=== PATIENT | male | born 1960 | race Caucasian/White ===

== ENCOUNTER 2018-05-18 10:57 | Inpatient (IN) | payer OTHER, MEDICARE ==
[~2018-05-18] VITALS: Ht 182.9 cm; Wt 108.4 kg
[2018-05-18 11:18] VITALS: BP 160/102
--- NOTE | 2018-05-18 11:19 | NUR ---
ARRIVAL PATIENT ARRIVED TO ED8 AMBULATORY WITH FAMILY, PATIENT AND FAMILY STATES PATIENT WAS HAVING SOME HALLUCINATIONS ON MYRNA KYLE, HE WAS TALKING TO HIS LOTTERY TICKET AND OFF BALANCE, DOES HAVE A HISTORY OF BIPOLAR AND DEPRESSION. BROUGHT TO THE ED FOR ADMISSION TO THE BEHAVIORAL HEALTH UNIT FOR MEDICATION EVAL.
--- NOTE | 2018-05-18 11:23 | ER.PDOC ---
General Chief Complaint: Requesting Medical Care Stated Complaint: MEDICAL CLEARANCE/ DEPRESSION/ HALUCINATIONS Time seen by MD: 11:11 Source: patient, family, RN/MD History of Present Illness Timing/Duration: week Severity: moderate Associated Symptoms: Depressed, Hallucinating Prior symptoms/Treatment: Similar symptoms previous Allergies: Coded Allergies: No Known Allergies (Unverified , 05/18/18) Home Meds Reported Medications Clonazepam (KLONOPIN) 1 Mg Tablet, 1.5 MG PO BID, TABLET 05/18/18 Testosterone Cypionate (TESTOSTERONE CYPIONATE) 200 Mg/1 Ml Vial, 200 MG IM EVERY 2 WEEKS, VIAL 05/18/18 Cyclobenzaprine Hcl (FLEXERIL) 10 Mg Tablet, 1 TAB PO BID, #30 TAB 05/18/18 Amlodipine Besylate (NORVASC) 2.5 Mg Tablet, 1 TAB PO BID, #90 TAB 3 Refills 05/18/18 Aspirin (ASPIR 81) 81 Mg Tablet.dr, 1 TAB PO DAILY, #90 TAB 3 Refills 05/18/18 Fenofibrate Nanocrystallized (TRICOR) 145 Mg Tablet, 1 TAB PO DAILY, #90 TAB 3 Refills 05/18/18 Levothyroxine Sodium (SYNTHROID) 200 Mcg Tablet, 1 TAB PO DAILY, #90 TAB 3 Refills 05/18/18 Tamsulosin Hcl (FLOMAX) 0.4 Mg Cap.er.24h, 1 CAP PO DAILY, #90 CAP 3 Refills 05/18/18 Lovastatin (LOVASTATIN) 20 Mg Tablet, 1 TAB PO DAILY, #90 TAB 3 Refills 05/18/18 Hydrochlorothiazide (HYDROCHLOROTHIAZIDE) 12.5 Mg Capsule, 1 CAP PO DAILY, #90 CAP 3 Refills 05/18/18 Gabapentin (GABAPENTIN) 400 Mg Capsule, 1 CAP PO BID, #90 CAP 05/18/18 Duloxetine Hcl (CYMBALTA) 60 Mg Capsule.dr, 1 CAP PO BID, #30 CAP 2 Refills 05/18/18 Oxcarbazepine (TRILEPTAL) 600 Mg Tablet, 1 TAB PO BID, #60 TAB 05/18/18 Bupropion Hcl (BUPROPION XL) 300 Mg Tab.er.24h, 1 TAB PO DAILY, #30 TAB 05/18/18 Past Medical History Medical History: other (BIPOLAR) Family History Significant Family History: no pertinent family hx Social History Smoking: non-smoker Alcohol Use: sober Drug Use: none Reviewed Nursing Reviewed: Vital Signs, Abn. Noted Review of Systems All Other Systems: Reviewed and Negative Physical Exam General Appearance: No acute distress, Alert EENT: No nystagmus, PERRLA, EOM's intact, NML ENT inspection, Pharynx nml, NML gag reflex Neck: Non-Tender, Full Range of Motion, Supple, Normal Inspection Respiratory: chest non-tender Cardiovascular: Normal Peripheral Pulses, Regular Rate, Rhythm, No Edema, No Gallop, No JVD, No Murmur Gastrointestinal: Normal Bowel Sounds, No Organomegaly, No Pulsatile Mass, Non Tender, Soft Appearance/Memory/Insight: Appropriate Appearance, Appropriate Insight, Neat, No Memory Impairment Behavior/Eye Contact/Speech: Cooperative, Good Eye Contact, Normal Speech Thoughts/Hallucinations: Auditory Hallucinations Skin: Normal Color, Warm/Dry Results/Orders Results/Orders Laboratory Tests Test 05/18/18 11:20 White Blood Count 9.4 10^3/uL (4.5-11.0) Red Blood Count 5.52 10^6/uL (4.50-5.90) Hemoglobin 17.1 g/dL (13.9-16.3) Hematocrit 52.0 % (37.0-53.0) Mean Corpuscular Volume 94.2 fL (78-100) Mean Corpuscular Hemoglobin 31.0 pg (26-34) Mean Corpuscular Hemoglobin Concent 32.9 g/dL (33-37) Red Cell Distribution Width 13.4 % (11.5-14.5) Platelet Count 304 10^3/uL (150-400) Mean Platelet Volume 9.4 fL (7.8-11.0) Neutrophils (%) (Auto) 75.7 % (41.0-85.0) Lymphocytes (%) (Auto) 12.5 % (24.0-44.0) Monocytes (%) (Auto) 8.3 % (5.0-12.0) Neutrophils # (Auto) 7.1 10^3/uL (1.8-7.7) Lymphocytes # (Auto) 1.2 10^3/uL (1.0-4.8) Monocytes # (Auto) 0.8 10^3/uL (0.3-0.8) Absolute Immature Granulocyte (auto 0.03 10^3 u/L (0-2) Eosinophils % 2.8 % (0.0-5.0) Basophils % 0.4 % (0.0-0.2) Basophils # 0.0 10^3/uL (0.0-0.1) Eosinophil Count 0.3 10^3/uL (0.0-0.2) Prothrombin Time 9.9 SEC (9.8-11.9) Prothrombin Time INR (Non-Therap) 1.0 Activated Partial Thromboplast Time 26.3 SEC (24.67-30.72) Urine Collection Type UNKNOWN Urine Color YELLOW (YELLOW) Urine Appearance CLEAR (CLEAR) Urine Bilirubin NEGATIVE MG/DL (NEGATIVE) Urine Ketones NEGATIVE (NEGATIVE) Urine Specific Kerrick 1.005 (1.005-1.035) Urine pH 7 (5.0-6.0) Urine Protein NEGATIVE (NEGATIVE) Urine Urobilinogen NORMAL (NEGATIVE) Urine Nitrate NEGATIVE (NEGATAIVE) Urine Leukocyte Esterase NEGATIVE (NEGATIVE) Urine Blood NEGATIVE (NEGATIVE) Urine Glucose NORMAL (NEGATIVE) Sodium Level 137 mmol/L (132-145) Potassium Level 4.2 mmol/L (3.6-5.2) Chloride Level 104.0 mmol/L (96-109) Carbon Dioxide Level 23.8 mmol/L (20.0-32) Anion Gap 13.4 Blood Urea Nitrogen 7 mg/dL (7-18) Creatinine 0.90 mg/dL (0.59-1.40) Estimated GFR () 105.6 (>/=60) BUN/Creatinine Ratio 7.0 Glucose Level 140 mg/dL (70-110) Calcium Level 9.3 mg/dL (8.4-10.5) Total Bilirubin 0.3 mg/dL (0.2-1.0) Aspartate Amino Transf (AST/SGOT) 19 U/L (0-35) Alanine Aminotransferase (ALT/SGPT) 32 U/L (12-78) Alkaline Phosphatase 65 U/L (50-136) Total Creatine Kinase 355 U/L (39-308) Troponin I < 0.02 ng/mL (0.00-0.05) Pro-B-Type Natriuretic Peptide 22 pg/mL (0-125) Total Protein 7.2 g/dL (6.4-8.2) Albumin 4.1 g/dL (3.4-5.0) Globulin 3.1 Vitamin B12 Level 594 pg/mL (193-986) Thyroid Stimulating Hormone (TSH) 2.228 mIU/mL (0.358-3.740) Urine Opiates, Qualitative NEGATIVE ng/mL (CUT-OFF:300) Urine Methadone, Qualitative NEGATIVE ng/mL (CUT-OFF:300) Urine Amphetamine Qualitative NEGATIVE ng/mL (CUTOFF:1000) Urine Barbiturates, Qualitative NEGATIVE ng/mL (CUT-OFF:200) Urine Phencyclidine Screen NEGATIVE ng/mL (CUT-OFF:25) Urine MDMA (Ecstasy), Qualitative POSITIVE ng/mL (CUT-OFF:300) Urine Benzodiazepines Screen NEGATIVE ng/mL (CUT-OFF:200) Urine Cocaine Qualitative NEGATIVE ng/mL (CUT-OFF:300) Ur Tetrahydrocannabinol (THC) Scrn POSITIVE ng/mL (CUT-OFF:50) Percent Immature Gran (Cell Imm) 0.30 % (0.00-0.50) Consult/PCP Time Consult/PCP Called: 13:00 Consult/PCP: DR FAM Departure Time of Disposition: 12:22 Disposition: 65 XFER TO PSYCH HOSP/UNIT Impression: Primary Impression: Psychosis Condition: Stable Comments MEDICALLY CLEAR FOR GP Duration or Time Spent with Pa: 2 HRS FIORDALIZA BERGER MD May 18, 2018 11:23
[2018-05-18] MEDS ORDERED: TAMS-14 PO (11:26)
[2018-05-18] MEDS ORDERED: AMLO2.5T2 PO (11:26)
[2018-05-18] MEDS ORDERED: HYDR12.53 PO (11:26)
[2018-05-18] MEDS ORDERED: LOVA20TA2 PO (11:26)
[2018-05-18] MEDS ORDERED: DULO60CA7 PO (11:26)
[2018-05-18] MEDS ORDERED: FENO145T PO (11:26)
[2018-05-18] MEDS ORDERED: CLON1TAB PO (11:26)
[2018-05-18] MEDS ORDERED: [UNRECOGNIZED DRUG - CODE] PO (11:26)
[2018-05-18] MEDS ORDERED: GABA400C10 PO (11:26)
[2018-05-18] MEDS ORDERED: LEVO200T PO (11:26)
[2018-05-18] MEDS ORDERED: OXCA600T3 PO (11:26)
[2018-05-18] MEDS ORDERED: TEST200V3 IM (11:26)
[2018-05-18] MEDS ORDERED: ASPI-484 PO (11:26)
[2018-05-18] MEDS ORDERED: CYCL10TA2 PO (11:26)
--- NOTE | 2018-05-18 11:30 | DIREP ---
PROCEDURE:CHEST 1 VIEW COMPARISON:[facility], CR, XRAY CHEST 2 VWS, 04/20/2018, 08:30 AM. INDICATIONS:MEDICAL CLEARANCE FINDINGS: LUNGS/PLEURA:No significant pulmonary parenchymal abnormalities. No effusions. VASCULATURE:Normal. Unremarkable pulmonary vasculature. CARDIAC:Normal. No cardiac silhouette abnormality or cardiomegaly. MEDIASTINUM:Normal. No visible mass or adenopathy. BONES:Mild scoliosis with mild degenerative disc disease and spondylosis. OTHER:Negative. CONCLUSION:No acute cardiopulmonary disease. No change. Dictated by: Gwyn Viera M.D. on 05/18/2018 at 11:28 AM
[2018-05-18 11:31] LABS: BASOPHIL % 0.4 % (0.0-0.2); EOSINOPHIL # 0.3 10^3/uL (0.0-0.2); EOSINOPHIL % 2.8 % (0.0-5.0); HEMOGLOBIN 17.1 g/dL (13.9-16.3); LYMPHOCYTES # 1.2 10^3/uL (1.0-4.8); LYMPHOCYTES % 12.5 % (24.0-44.0); MEAN CELL HGB CONCENTRATION 32.9 g/dL (33-37); MEAN CORP VOLUME 94.2 fL (78-100); MEAN PLATELET VOLUME 9.4 fL (7.8-11.0); MONOCYTES # 0.8 10^3/uL (0.3-0.8); MONOCYTES % 8.3 % (5.0-12.0); NEUTROPHIL # 7.1 10^3/uL (1.8-7.7); NEUTROPHILS % 75.7 % (41.0-85.0); RED CELL DISTRIBUTION WIDTH 13.4 % (11.5-14.5); WHITE BLOOD CELL 9.4 10^3/uL (4.5-11.0)
[2018-05-18 11:36] LABS: BILIRUBIN,URINE NEGATIVE (NEGATIVE); UROBILINOGEN,URINE NORMAL (NEGATIVE)
[2018-05-18 11:42] LABS: APPEARANCE,URINE CLEAR (CLEAR); UA COLOR YELLOW (YELLOW)
--- NOTE | 2018-05-18 11:44 | PCM.EKG ---
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
[2018-05-18 12:05] VITALS: BP 164/94
[2018-05-18 12:14] LABS: ALANINE AMINOTRANSFERASE(ML) 32 U/L (12-78); ALKALINE PHOSPHATASE 65 U/L (50-136); ASPARTATE AMINO TRANSFERASE 19 U/L (0-35); CALCIUM 9.3 mg/dL (8.4-10.5); CARBON DIOXIDE 23.8 mmol/L (20.0-32); GLUCOSE 140 mg/dL (70-110)
--- NOTE | 2018-05-18 12:33 | NUR ---
CRISTEL BERGER ON PHONE FOR ADMIT CONSULT.
--- NOTE | 2018-05-18 12:42 | NUR ---
BH SPOKE WITH [facility]; THEY WILL COME FOR PT SOON.
--- NOTE | 2018-05-18 13:00 | NUR ---
ADMISSION PT ADMITTING TO UNIT, REFER TO ADMISSION PACKET. TELEMED WITH DR BONNER. PT STATED THAT HE HAS BEEN FALLING AT HOME AND HAS BEEN DIZZY. CHANGE IN MEDICATIONS NOTED REFER TO EMAR
[2018-05-18 13:18] VITALS: BP 151/94
[2018-05-18] MEDS ORDERED: HALDOL PO PRN (14:00)
[2018-05-18 14:41] VITALS: BP 136/89
--- NOTE | 2018-05-18 16:37 | PSYCH ---
DATE OF SERVICE: 05/18/2018 INITIAL PSYCHIATRIC ADMISSION EVALUATION CHIEF COMPLAINT: "I'm hearing voices and not doing well." HISTORY OF PRESENT ILLNESS: The patient is a 58-year-old male with a history of bipolar disorder with psychotic features, generalized anxiety, and severe pain issues. The patient reports [facility] in the past. He reports seeing Dr. Ramos for bipolar disorder. He reports being on multiple psychotropic medications recently and feels like he is on too many psychiatric meds. He was on Latuda most recently and did not have a good reaction with this medication. He states that he was on Abilify in the past and did not do well with this medication. He thinks that he took Depakote in the past without success. He has recently been on Wellbutrin-XL, clonazepam, Cymbalta, gabapentin, and Trileptal. He does not feel like this medication regimen is working very well. He reports having auditory and visual hallucinations daily. He reports they are bothersome to him. He reports having mood swings. He reports a history of manic episodes. He reports having problems with anger and irritability. He reports destroying property in the past when he has been angry. He denies current suicidal ideation. He denies current homicidal ideation. He has attempted suicide at least 3 times in the past. He reports a moderate to high anxiety level. He reports a low energy level. He reports low motivation. He reports his mood is severely depressed. He reports feeling hopeless and helpless. He reports sleeping well at night. He has a normal appetite. He has gained 25 pounds over the past 12 months. He lives with his who he reports is supportive. He does admit to using marijuana occasionally. He reports using marijuana, last on . PAST PSYCHIATRIC HISTORY: The patient has been hospitalized 3 times [facility] in the [facility]. The patient has attempted suicide 3 times in the past. The patient currently sees Dr. Ramos who is an outpatient psychiatrist in [place], [place]. He has been on multiple psychotropic medications in the past. He has history of impulse control problems. PAST MEDICAL HISTORY: 1. Hypertension. 2. High cholesterol. 3. Hypothyroidism. 4. BPH. 5. Bipolar disorder. 6. Neuropathic pain. 7. Degenerative disk disease. CURRENT MEDICATIONS: 1. Norvasc 2.5 mg p.o. b.i.d. 2. Aspirin 81 mg p.o. daily. 3. Wellbutrin XL 300 mg p.o. daily. 4. Clonazepam 1.5 mg p.o. b.i.d. 5. Flexeril 10 mg p.o. b.i.d. 6. Cymbalta 60 mg p.o. b.i.d. 7. TriCor 145 mg p.o. daily. 8. Gabapentin 400 mg p.o. b.i.d. 9. Hydrochlorothiazide 12.5 mg p.o. daily. 10. Levothyroxine 200 mcg p.o. daily. 11. Lovastatin 20 mg p.o. daily. 12. Trileptal 600 mg p.o. b.i.d. 13. Flomax 0.4 mg p.o. daily. 14. Testosterone 200 mg IM q.2 weeks. ALLERGIES: No known drug allergies. FAMILY PSYCHIATRIC HISTORY: Alcoholism runs strongly in his family. His brother and sister both have bipolar disorder. He reports mental health problems also run strongly in his family. SOCIAL HISTORY: The patient has a history of alcoholism. The patient has been clean and sober for the past 5 years. He went to [facility] for substance abuse treatment about 5 years ago. The patient reports using marijuana occasionally. The patient denies using other illicit drugs including ecstasy. He does not know how his urine drug screen was positive for ecstasy. He denies using tobacco. He is currently on disability. 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 He is currently to his second . He has 3 children. He has an 11th grade education. He denies legal problems. OBJECTIVE: VITAL SIGNS: Height is 182.88 cm, weight is 113.4 kilograms, temperature is 97.6, pulse is 87, respirations are 20, blood pressure is 151/94, O2 saturation is 94% on room air, BMI is 33.9. The patient was in no physical pain or distress at the time of the interview. He does have chronic pain issues. The patient did have a urine drug screen positive for marijuana and ecstasy. He was negative for benzodiazepines. The patient reports that he smoked marijuana once in the past month on [place]. He reports never using ecstasy. He reports taking his benzodiazepine properly. REVIEW OF SYSTEMS: CONSTITUTIONAL: Recent weight gain over the past year. Gained 25 pounds over the past year. No fatigue. No insomnia. NEUROLOGICAL: No tremors. No weakness. No dizziness. PSYCHIATRIC: Positive for depression. Positive for anxiety. Positive for psychosis. No rosy. GASTROINTESTINAL: No diarrhea, no constipation, no nausea, no vomiting, no GERD symptoms. GENITOURINARY: No problems urinating. No pain on urination. CARDIOVASCULAR: No chest pain or chest palpitations. RESPIRATORY: No shortness of breath. No wheezing or coughing. SKIN: No problems reported. ENDOCRINE: No heat or cold intolerance. EXTREMITIES: No swelling or edema. EYES: No recent changes in vision. EARS: No recent changes in hearing. MUSCULOSKELETAL: Chronic pain issues. Review of systems is otherwise negative, reviewed by Dr. Her. STRENGTHS: Family support. Relatively healthy. WEAKNESSES: Chronic mental health issues. Poor judgment and poor insight. COGNITIVE IMPAIRMENTS: Yes. MENTAL STATUS EXAMINATION: MUSCLE STRENGTH AND TONE: Within normal limits for age. GAIT AND STATION: Within normal limits for age. APPEARANCE: Well-groomed and good hygiene. Appears stated age. Casual attire. Overweight. ATTITUDE AND BEHAVIOR: Cooperative. Good eye contact. Psychomotor retardation. MOOD AND AFFECT: Mood is depressed. Affect is guarded. ATTENTION AND CONCENTRATION: Fair attention and fair concentration. ORIENTATION: Oriented to person, place, and situation. Knew the approximate date. Knew that New Year is coming up next week. The patient was able to sign in voluntarily. SPEECH: Regular rate and volume. JUDGMENT AND INSIGHT: Fair judgment and fair insight. THOUGHT PROCESS: Logical and goal directed. LANGUAGE: Serbian. THOUGHT CONTENT: Negative for suicidal or homicidal ideation. Positive for auditory and visual hallucinations. Negative for paranoia. FUND OF KNOWLEDGE: Within normal limits. ASSOCIATIONS: Within normal limits. MEMORY: Recent and remote memory are both intact. ASSESSMENT: Bipolar disorder with psychotic features; generalized anxiety disorder; cannabis abuse; history of alcohol dependence. PROGNOSIS: Fair to guarded. ESTIMATED LENGTH OF STAY: 7-10 days. TREATMENT PLAN: 1. The patient will be a voluntary admission to the Behavioral Health Unit at the [facility]. The patient will be monitored closely for behaviors. 2. The patient will be started on Zyprexa Zydis 5 mg p.o. at bedtime. He will be started on Haldol 2 mg p.o. q. 6 hours p.r.n. psychosis. The patient will have his clonazepam decreased to 1 mg p.o. b.i.d. The patient will have his Trileptal discontinued. The patient will have his Wellbutrin-XL discontinued. The patient will continue other current medications. 3. The patient will see the general medical doctor for general medical health issues. The general medical doctor will manage general medical medications. 4. The patient was encouraged to participate in all groups and activities. He states he will be cooperative with staff. He states he will not try to harm himself while on the unit. Brooks Her IV MD DR: /char JOB# [id number]
--- NOTE | 2018-05-18 18:50 | NUR ---
GMAS SCORE : FINDINGS INDICATE SEVERE DEPRESSION. Addendum: 05/18/18 at 1851 by Priya Be LMSW SW Amended: Links added.
--- NOTE | 2018-05-18 18:56 | NUR ---
MMSE SCORE 13: FINDINGS INDICATE SIGNIFICANT IMPAIRMENT.
--- NOTE | 2018-05-18 19:54 | NUR ---
SYMPTOMATOLOGY: PT IS VOLUNTARY. PT WAS LIVING HOME WITH HIS AND BROUGHT IN FOR DEPRESSION, ANXIETY, AGGRESSION, HALLUCINATIONS, AND MEDICATION MANAGEMENT. PT STATES HE FEELS LIKE HE IS ON TOO MUCH MEDICATION, AND HAVING TROUBLE CONCENTRATING. GOAL UPON DISCHARGE IS TO RETURN HOME WITH HIS AND FOLLOW UP WITH DR. GOPAL ACEVEDO. Addendum: 05/18/18 at 6 by Priya Be LMSW SANTANA Amended: Links added.
[2018-05-18 20:04] VITALS: BP 125/88
[2018-05-18] MEDS: ZYPREXA ZYDIS SL SCH (20:29)
[2018-05-18] MEDS: NEURONTIN PO SCH (20:29)
[2018-05-18] MEDS: CYMBALTA PO SCH (20:29)
[2018-05-18] MEDS: KLONOPIN PO SCH (20:31)
[2018-05-18] MEDS ORDERED: TRILEPTAL PO SCH (21:00)
[2018-05-18] MEDS ORDERED: KLONOPIN PO SCH (21:00)
--- NOTE | 2018-05-19 04:00 | NUR ---
pirp- P-ALTERED THOUGHT PROCESS AND RISK FOR FALLS I- PROVIDE MEDICATION ORDERED,PROVIDE 1:1 INTERVENTION ALLOWING PT. TO EXPRESS THOUGHTS AND FEELINGS AND PROVIDE SAFE AND SUPPORTIVE ENVIRONMENT. R- PT. WAS ORIENTED TO NAME AND MONTH AND STATED THIS IS 2016. DENIES SI RICH. RATED DEPRESSION 5 AND ANXIETY 7. ATTENDED GROUP,ATE SNACKS AND PARTICIPATED IN GROUP ACTIVITIES. QUIET AND DID NOT INITIATE INTERACTION BUT RESPONDED TO APPROACH. HE STATED HE BABYSITS HIS GRAND KIDS EVERY DAY AND REALLY ENJOYS IT AND MISSES THEM NOW. TOOK MEDICATION A ORDERED. HE STATED HE HEARS VOICES BUT HAS NOT HEARD VOICES TONIGHT. PT. EXHIBITED PLEASANT AFFECT. HE STATES AT TIMES HE GETS DIZZY AT HOME AND FALLS BUT STATES HE THINKS IT IS THE MEDICATION HE TAKES AT HOME THAT CAUSES THAT. PT. HAS BEEN PROVIDED WITH YELLOW NON SKID SOCKS .RESTING IN BED WITH EYES CLOSED AT THIS TIME. P- WILL CONTINUE WITH CURRENT [place]. PLAN.
[2018-05-19 08:24] VITALS: BP 140/101
[2018-05-19] MEDS ORDERED: MEVACOR PO SCH (09:00)
[2018-05-19] MEDS ORDERED: WELLBUTRIN XL PO SCH (09:00)
[2018-05-19] MEDS: CYMBALTA PO SCH ×2 (09:38→20:27)
[2018-05-19] MEDS: FLOMAX PO SCH (09:38)
[2018-05-19] MEDS: NORVASC PO SCH ×2 (09:38→20:25)
[2018-05-19] MEDS: TRICOR PO SCH (09:38)
[2018-05-19] MEDS: ASPIRIN EC PO SCH (09:38)
[2018-05-19] MEDS: HYDROCHLOROTHIAZIDE PO SCH (09:39)
[2018-05-19] MEDS: NEURONTIN PO SCH ×2 (09:39→20:26)
[2018-05-19] MEDS: KLONOPIN PO SCH ×2 (09:39→20:25)
[2018-05-19] MEDS: FLEXERIL PO SCH ×2 (09:39→20:25)
--- NOTE | 2018-05-19 10:39 | NUR ---
TELEMED PT WAS SEEN BY DR. BONNER VIA TELEMED. NO NEW ORDERS RECEIVED @ THIS TIME.
--- NOTE | 2018-05-19 10:51 | PRM.PN ---
Mood: UP AND DOWN, STRUGGLES WITH DEPRESSION Sleep: SLEPT 7.75 HOURS LAST NIGHT Appetite: NORMAL APPETITE Suidical thoughts: NONE REPORTED Homicidal thoughts: NONE REPORTED Recent stressors: STRESS OF MENTAL ILLNESS Family support: GOOD SOCIAL SUPPORT FROM HIS Aggressive Behavior: NONE REPORTED Ability to Perform ADL'sc: YES Psychotic sympstoms: HALLUCINATIONS, PARANOIA (IMPROVED SOME) Manic Symptoms: MOOD SWINGS, PROBLEMS WITH ANGER AND IRRITABILITY Living situation: LIVES WITH HIS IN [place], [place] Illicit Drug usec: OCCASIONAL MARIJUANA USE Alcoholo use: NONE REPORTED Tobacco use: NONE REPORTED Anxity Symptoms: MODERATE ANXIETY LEVEL Anger/Irritablility: LIMITED ANGER AND IRRITABILITY Muscle Strength & Tone: WNL Gait & Station: WNL Appearance: Well groomed/hygience, Casual attire, Appears age stated, Overweight Attitude & Behaviour: Cooperative/Pleasant, Good eye contact, Psychomotor retardation Mood & Affect: Euthymic/appr/congruent, Iabile, Depressed Orientation: Fully oriented per interv Attention/Concentration: Good attention, Good concentration Speech: Reg rate/vol/rhyth/prosod Judgement/Insight: Fair judgement, Fair insight Thought Process: Linear/goal directed Language: Hebrew Thought content/Abnormal/Psych: None/normal Fund of Knowledge: WNL Associations: WNL/Normal Associations Memory (recent and remote): Gross int/not form assess Constitutional: Insomnia Neurological: None Psychiatric: Depressed, Anxious, Psychosis [place] I: BIPOLAR DISORDER WITH PSYCHOTIC FEATURES; CHAU; CANNABIS ABUSE Lost[place] II: DEFERRED [place] III: REFER TO PMH/MEDICAL CHART [place] IV: STRESS OF MENTAL ILLNESS Lost[place] V: GAF=35 Assessment/Plan Assessment/Plan Assessment/Plan Vital Signs Date Time Temp Pulse Resp B/P (MAP) Pulse Ox O2 Delivery O2 Flow Rate FiO2 05/19/18 09:39 140/101 05/19/18 09:38 85 05/19/18 08:24 98.0 20 100 Room Air 98.0 Allergies Coded Allergies No Known Allergies (Saphcaffcu20/28/18) I & O 05/18/18 11:16 Thru 05/19/18 10:00 Intake Total 1442 ml Balance 1442 ml Current Medications Medications (Trade) Dose Ordered Sig/Jordi Route Start Time Stop Time Status Last Admin Dose Admin Gabapentin (Neurontin) 400 mg BID PO 05/18/18 21:00 06/17/18 20:59 05/19/18 09:39 400 MG Duloxetine HCl (Cymbalta) 60 mg BID PO 05/18/18 21:00 06/17/18 20:59 05/19/18 09:38 60 MG Olanzapine (Zyprexa Zydis) 5 mg HS SL 05/18/18 21:00 06/17/18 20:59 05/18/18 20:29 5 MG Clonazepam (Klonopin) 1 mg BID PO 05/18/18 21:00 06/17/18 20:59 05/19/18 09:39 1 MG Amlodipine Besylate (Norvasc) 2.5 mg BID PO 05/19/18 09:00 06/18/18 08:59 05/19/18 09:38 2.5 MG Aspirin (Aspirin Ec) 81 mg DAILY PO 05/19/18 09:00 06/18/18 08:59 05/19/18 09:38 81 MG Cyclobenzaprine HCl (Flexeril) 10 mg BID PO 05/19/18 09:00 06/18/18 08:59 05/19/18 09:39 10 MG Fenofibrate (Tricor) 145 mg DAILY PO 05/19/18 09:00 06/18/18 08:59 05/19/18 09:38 145 MG Hydrochlorothiazide (Hydrochlorothiazide) 12.5 mg DAILY PO 05/19/18 09:00 06/18/18 08:59 05/19/18 09:39 12.5 MG Tamsulosin HCl (Flomax) 0.4 mg DAILY PO 05/19/18 09:00 06/18/18 08:59 05/19/18 09:38 0.4 MG THE PATIENT WAS SEEN BY DR. BONNER VIA TELEMEDICINE EQUIPMENT ALONG WITH THE TREATMENT TEAM. THE PATIENT REPORTEDLY SLEPT 7.75 HOURS LAST NIGHT. HE REPORTS HAVING BROKEN SLEEP. THE PATIENT HAS A NORMAL APPETITE. THE PATIENT REPORTS HIS MOOD IS UP AND DOWN. THE PATIENT STRUGGLES WITH DEPRESSION. THE PATIENT HAS MOOD SWINGS. THE PATIENT HAS BEEN ATTENDING THE GROUPS. THE PATIENT DENIES FEELING PARANOID. THE PATIENT DENIES AUDITORY OR VISUAL HALLUCINATIONS. THE PATIENT DOES NOT HAVE ODD OR DELUSIONAL THINKING. THE PATIENT IS NOT CURRENTLY MANIC OR HYPOMANIC. THE PATIENT REPORTS A MODERATE ANXIETY LEVEL. THE PATIENT HAS BEEN TAKING HIS MEDICATIONS AND TOLERATING HIS MEDICATIONS. THE PATIENT IS A VOLUNTARY ADMISSION. ASSESSMENT: BIPOLAR DISORDER WITH PSYCHOTIC FEATURES; GENERALIZED ANXIETY DISORDER, INSOMNIA, CANNABIS ABUSE PLAN: 1) CONTINUE BEHAVIORAL HEALTH MANAGEMENT AT THE [facility]. 2) CONTINUE CURRENT MEDICATIONS. THE PATIENT AND STAFF WERE AGREEABLE WITH THE PLAN. 16 MINUTES SPENT IN SUPPORTIVE THERAPY AND INSIGHT ORIENTED THERAPY. THE PATIENT DENIES SI OR HI. Problems: (1) Bipolar disorder with psychotic features Status: Acute ICD Code: F31.9 - Bipolar disorder, unspecified SNOMED: [id number] Patient History: Asthma G8 BROTHER Cerebrovascular disorder 33 FATHER (50 years old) Chronic obstructive pulmonary disease G8 BROTHER Diabetes mellitus 32 MOTHER No known health problems 32 MOTHER 33 FATHER G8 BROTHER G8 SISTER G8 SISTER G8 SISTER Unknown 32 MOTHER (dies from lewgarets disease in 60's) 33 FATHER ( from heart attack in 50's) CASA BONNER IV, MD May 19, 2018 10:51
--- NOTE | 2018-05-19 12:35 | NUR ---
DR. CRISTEL FAM @ BEDSIDE, RECEIVED ORDERS FOR ADJUSTMENT TO BP MEDICATIONS, SEE EMR.
--- NOTE | 2018-05-19 16:22 | NUR ---
PIRP P: ALTERED THOUGHT PROCESS, SLEEP DISTURBANCE I: ASSESS FOR HALLUCINATIONS AND DELUSIONS, MONITOR FOR CHANGES IN USUAL BEHAVIOR, Q15 MIN MONITORING, PROVIDE SAFE AND SUPPORTIVE ENVIRONMENT, PROVIDE 1:1 TO ENCOURAGE EXPRESSION OF FEELINGS, GIVE CLEAR AND SIMPLE INSTRUCTIONS, GIVE MEDICATIONS ORDERED, ALTERNATE REST/ACTIVITY R: PT HAS PLEASANT AFFECT WHEN APPROACHED, ISOLATES TO ROOM THROUGHOUT SHIFT. DOES NOT INITIATE INTERACTION WITH STAFF OR PEERS. DENIES FEELINGS OF DEPRESSION, ANXIETY, SI/HI. REPORTS HIS MOOD IS "OKAY," AND STATES, "I JUST FEEL SO TIRED." NO HALLUCINATIONS, DELUSIONS, OR PARANOIA EXHIBITED. HAS TAKEN MEDICATIONS ORDERED, COMES OUT TO DAY ROOM FOR MEAL TIMES. P: ALTERNATE REST/ACTIVITY, ENCOURAGE SOCIAL INTERACTION.
--- NOTE | 2018-05-19 18:51 | HPH ---
ADMIT DATE: 05/18/2018 The patient is admitted to the psych unit under the care of Dr. Poncho Her for schizophrenia. REASON FOR H AND P AND CONSULTATION: Follow up the patient medically. HISTORY OF PRESENT ILLNESS: This is a 58-year-old male who was admitted to the psych unit for schizophrenia/exacerbation of bipolar disorder and he has been cared by Dr. Poncho Her for his psychosis. The patient had some medical problem in the past, which would require the medical service to follow up on these problems. PAST MEDICAL HISTORY: Significant for: 1. Hypertension. 2. Dyslipidemia. 3. History of benign prostate hypertrophy. MEDICATIONS: The patient has been treated for these problems with the following medications: 1. Amlodipine 2.5 mg daily. 2. Aspirin 81 mg daily. 3. TriCor 145 mg daily. 4. Hydrochlorothiazide 12.5 mg daily. 5. Flomax 0.4 mg daily. 6. Synthroid 200 mcg daily. 7. Lipitor 5 mg at bedtime. PAST SURGICAL HISTORY: None. SOCIAL HISTORY: The patient does not smoke, but he was an ex-smoker and he was an heavy alcohol drinker and he used dope as a drug in the past, but he did never used IV drug that he has not been using any street drugs for a long period of time. FAMILY HISTORY: Reviewed and negative. REVIEW OF SYSTEMS: Fourteen systems reviewed with the patient, all were negative. PHYSICAL EXAMINATION: VITAL SIGNS: Temperature 98, pulse 85, respirations 20, blood pressure 140/101, O2 sat 100% on room air. HEENT: Pupils reactive. Conjunctivae intact. Sclerae are anicteric. Nares patent. Ear lobes intact. Throat clear. NECK: No JVD. No thyromegaly. No bruits. No lymphadenopathy. No masses. No tracheal deviation. HEART: Regular rhythm. No murmur. No gallop. CHEST: Clear. No rales. No crackles. Breath sounds are audible on both sides. ABDOMEN: Soft. No hepatosplenomegaly. No organomegaly. Bowel sounds active. No tenderness. EXTREMITIES: No cyanosis, clubbing or edema. Pulses are palpated at all sites with good amplitude. MUSCULOSKELETAL: No swelling, no tenderness, no deformities in the joints. Hand brewery worker is intact bilaterally. NEUROLOGIC: CN 2-CN 12 are intact. No motor or sensory deficit. Deep tendon reflexes are equal bilaterally. SKIN: No ulcers. No rashes. No paleness. Normal skin turgor. MENTAL STATUS: The patient is awake, alert, oriented for time, place and persons. LABORATORY DATA: CBC: White count 9.4, hemoglobin 17.1, hematocrit 52.0, platelet 304. Chemistry: Sodium 137, potassium 4.2, chloride 104, CO2 of 23.8, anion gap 13.4, BUN 7, creatinine 0.9, glucose 140, calcium 9.3. The TSH is 2.228. The urine drug screen was positive for THC as well as MDMA (ecstasy). DIAGNOSES: 1. Psychosis/exacerbation of bipolar disorder. 2. Hypertension. 3. Hyperglycemia, questionable diabetes. 4. Hypothyroidism, well controlled. 5. Benign prostatic hypertrophy. MANAGEMENT: I am going to continue his home medications. We will monitor closely and we will follow with you, Dr. Poncho Her while he is in the hospital for any clinical problem to evaluate and treat. The patient otherwise is stable and does not require any specific adjustment of his medications at this point. ZAKIYA FAM MD DR: MUKESH/char JOB# [id number]
[2018-05-19 19:43] VITALS: BP 121/84
[2018-05-19] MEDS ORDERED: LIPITOR ONE (20:22)
[2018-05-19] MEDS: LIPITOR PO SCH (20:25)
[2018-05-19] MEDS: ZYPREXA ZYDIS SL SCH (20:27)
--- NOTE | 2018-05-20 04:43 | NUR ---
PIRP P: ALTERED THOUGHT PROCESS, SLEEP DISTURBANCE I: Q15 MONITORING, MONITOR FOR CHANGES IN BEHAVIOR, ASSESS FOR SUICIDAL THOUGHTS, PROVIDE A RESTFUL ENVIRONMENT, ENCOURAGE EXPRESSION OF FEELINGS R: PT HAS BEEN PLEASANT, PT HAS STAYED IN ROOM THROUGHOUT SHIFT, DENIES ANY FEELINGS OF ANXIETY OR DEPRESSION, PT STATES "I'M STARTING TO FEEL BETTER" . P: ALTERNATE REST/ACTIVITY, ENCOURAGE SOCIAL INTERACTION
[2018-05-20] MEDS: SYNTHROID PO SCH (06:12)
[2018-05-20 08:12] VITALS: BP 134/77
[2018-05-20] MEDS: CYMBALTA PO SCH ×2 (08:46→20:49)
[2018-05-20] MEDS: ASPIRIN EC PO SCH (08:46)
[2018-05-20] MEDS: NORVASC PO SCH ×2 (08:47→20:49)
[2018-05-20] MEDS: FLEXERIL PO SCH ×2 (08:47→20:49)
[2018-05-20] MEDS: TRICOR PO SCH (08:47)
[2018-05-20] MEDS: NEURONTIN PO SCH ×2 (08:47→20:49)
[2018-05-20] MEDS: FLOMAX PO SCH (08:47)
[2018-05-20] MEDS: KLONOPIN PO SCH ×2 (08:47→20:48)
[2018-05-20] MEDS: HYDROCHLOROTHIAZIDE PO SCH (08:47)
--- NOTE | 2018-05-20 10:26 | NUR ---
TELEMED PT WAS SEEN BY DR. BONNER VIA TELEMED. NO NEW ORDERS RECEIVED @ THIS TIME.
--- NOTE | 2018-05-20 10:31 | PRM.PN ---
Mood: MOOD HAS BEEN "ALRIGHT", STRUGGLES WITH DEPRESSION Sleep: SLEEPING WELL AT NIGHT, LOW ENERGY AND MOTIVATION Appetite: NORMAL APPETITE Suidical thoughts: NONE REPORTED Homicidal thoughts: NONE REPORTED Recent stressors: STRESS OF MENTAL ILLNESS Family support: HIS IS SUPPORTIVE Aggressive Behavior: NONE REPORTED Ability to Perform ADL'sc: YES Psychotic sympstoms: DENIES HALLUCINATIONS TODAY, DENIES DELUSIONS Manic Symptoms: NO MANIC OR HYPOMANIC SYMPTOMS Living situation: LIVES WITH HIS IN [place], [place] Illicit Drug usec: OCCASIONAL MARIJUANA USE Alcoholo use: NONE REPORTED Tobacco use: NONE REPORTED Anxity Symptoms: MODERATE ANXIETY LEVEL Anger/Irritablility: LIMITED ANGER AND IRRITABILITY Muscle Strength & Tone: WNL Gait & Station: WNL Appearance: Well groomed/hygience, Casual attire, Appears age stated, Overweight Attitude & Behaviour: Cooperative/Pleasant, Good eye contact Mood & Affect: Euthymic/appr/congruent Orientation: Fully oriented per interv Attention/Concentration: Good attention, Good concentration Speech: Reg rate/vol/rhyth/prosod Judgement/Insight: Fair judgement, Fair insight Thought Process: Linear/goal directed Language: Kinyarwanda Thought content/Abnormal/Psych: None/normal Fund of Knowledge: WNL Associations: WNL/Normal Associations Memory (recent and remote): Gross int/not form assess Constitutional: None Neurological: None Psychiatric: Depressed, Anxious [place] I: BIPOLAR DISORDER WITH PSYCHOTIC FEATURES; GENERALIZED ANXIETY DISORDER [place] II: DEFERRED [place] III: REFER TO PMH/MEDICAL CHART [place] IV: STRESS OF MENTAL ILLNESS [place] V: GAF=35 Assessment/Plan Assessment/Plan Assessment/Plan Vital Signs Date Time Temp Pulse Resp B/P (MAP) Pulse Ox O2 Delivery O2 Flow Rate FiO2 05/20/18 08:47 134/77 05/20/18 08:47 72 05/20/18 08:12 98.2 18 93 Room Air 98.2 Allergies Coded Allergies No Known Allergies (Vmqtlyypbz90/28/18) I & O 05/18/18 11:16 Thru 05/20/18 08:13 Intake Total 2858 ml Balance 2858 ml Current Medications Medications (Trade) Dose Ordered Sig/Jordi Route Start Time Stop Time Status Last Admin Dose Admin Levothyroxine Sodium (Synthroid) 200 mcg ACB PO 05/20/18 06:30 06/19/18 06:29 05/20/18 06:12 200 MCG Atorvastatin Calcium (Lipitor) 5 mg HS PO 05/19/18 21:00 06/18/18 20:59 05/19/18 20:25 5 MG THE PATIENT WAS SEEN BY DR. BONNER VIA TELEMEDICINE EQUIPMENT ALONG WITH NURSING STAFF. THE PATIENT SLEPT 9 HOURS LAST NIGHT. THE PATIENT HAS A NORMAL APPETITE. THE PATIENT HAS BEEN TAKING HIS MEDICATIONS WITHOUT SIDE EFFECTS. THE PATIENT IS A VOLUNTARY ADMISSION. [facility] . THE PATIENT DENIES AUDITORY OR VISUAL HALLUCINATIONS. THE PATIENT FEELS LIKE HIS MEDICATIONS ARE HELPING. THE PATIENT IS NOT HAVING MANIC OR HYPOMANIC SYMPTOMS. THE PATIENT REPORTS A STABLE ANXIETY LEVEL. THE PATIENT DENIES SIDE EFFECTS FROM HIS MEDICATIONS. THE PATIENT HAS BEEN PARTICIPATING IN GROUPS. ASSESSMENT: BIPOLAR DISORDER WITH PSYCHOTIC FEATURES; GENERALIZED ANXIETY DISORDER PLAN: 1) CONTINUE BEHAVIORAL HEALTH MANAGEMENT AT [facility]. SUPPORTIVE THERAPY GIVEN. THE PATIENT DENIES SI OR HI. SAFETY PLANS WERE DISCUSSED. Problems: (1) Bipolar disorder with psychotic features Status: Acute ICD Code: F31.9 - Bipolar disorder, unspecified SNOMED: 13681541 Patient History: Asthma G8 BROTHER Cerebrovascular disorder 33 FATHER (52 years old) Chronic obstructive pulmonary disease G8 BROTHER Diabetes mellitus 32 MOTHER No known health problems 32 MOTHER 33 FATHER G8 BROTHER G8 SISTER G8 SISTER G8 SISTER Unknown 32 MOTHER (dies from lewgarets disease in 60's) 33 FATHER ( from heart attack in 50's) CASA BONNER IV, MD May 20, 2018 10:31
--- NOTE | 2018-05-20 17:47 | NUR ---
PIRP P: ALTERED THOUGHT PROCESS I: ASSESS FOR HALLUCINATIONS, MONITOR FOR CHANGES IN USUAL BEHAVIOR, PROVIDE TASK-ORIENTED ACTIVITIES, PROVIDE 1:1 TO ENCOURAGE EXPRESSION OF FEELINGS, GIVE CLEAR AND SIMPLE INSTRUCTIONS, GIVE MEDICATIONS ORDERED, TEACH S/E OF MEDICATIONS, PROVIDE SAFE AND SUPPORTIVE ENVIRONMENT, Q15 MIN MONITORING R: PT HAS PLEASANT, COOPERATIVE AFFECT. ISOLATES TO ROOM, BUT DOES COME OUT TO DAY ROOM WHEN ASKED TO BY STAFF. PARTICIPATES IN SOME GROUP ACTIVITIES. CONTINUES TO VOICE FEELING "TIRED," BUT REPORTS HIS MOOD IS "DOING OKAY." DENIES DEPRESSION, ANXIETY, SI/HI, HALLUCINATIONS. NO DELUSIONS NOTED. ALERT AND ORIENTED X 3, SPEECH CLEAR AND APPROPRIATE. TAKES MEDICATIONS ORDERED. P: CONTINUE TO ENCOURAGE PT TO STAY UP OOB.
[2018-05-20 20:00] VITALS: BP 142/73
[2018-05-20] MEDS ORDERED: LIPITOR ONE (20:44)
[2018-05-20] MEDS: ZYPREXA ZYDIS SL SCH (20:49)
[2018-05-20] MEDS: LIPITOR PO SCH (20:49)
--- NOTE | 2018-05-21 04:19 | NUR ---
-PIRP P: Altered thought process I: Q 15 minute monitoring, assess for hallucinations, monitor for changes in usual behavior, provide task oriented activities, provide 1:1 to encourage expression of feelings, give medications as ordered, provide safe and supportive environment. R: The patient states that he is here because he feels like his medications were not effective and "my told me that I was acting bizarre and needed to get my medications straightened out". The patient denies depression, anxiety, suicidal or homicidal ideation at this time. He reports a hx of bipolar manic and states that he was hearing noises from a [employer] ticket when his told him to seek help. The patient has remained seclusive to self in room, but did come out when asked by staff. He presents with a pleasant affect and interacts appropriately. He states "I feel a lot better". No behavioral issues. No sleep distubances. The patient was compliant with medications. P: Continue with treatment plan. Will continue to monitor and maintain safety.
[2018-05-21] MEDS: SYNTHROID PO SCH (05:57)
[2018-05-21 07:30] VITALS: BP 111/59
[2018-05-21] MEDS: TRICOR PO SCH (08:50)
[2018-05-21] MEDS: NEURONTIN PO SCH ×2 (08:50→20:14)
[2018-05-21] MEDS: KLONOPIN PO SCH ×2 (08:51→20:15)
[2018-05-21] MEDS: ASPIRIN EC PO SCH (08:52)
[2018-05-21] MEDS: CYMBALTA PO SCH ×2 (08:52→20:14)
[2018-05-21] MEDS: FLOMAX PO SCH (08:52)
[2018-05-21] MEDS: FLEXERIL PO SCH ×2 (08:52→20:14)
[2018-05-21] MEDS: NORVASC PO SCH ×2 (08:53→20:14)
[2018-05-21] MEDS: HYDROCHLOROTHIAZIDE PO SCH (08:53)
--- NOTE | 2018-05-21 11:10 | NUR ---
[place] TEAM PT WAS SEEN BY DR. BONNER VIA TELEMED. RECEIVED ORDERS TO DECREASE SCHEDULED CLONAZEPAM, SEE EMAR.
--- NOTE | 2018-05-21 11:15 | PRM.PN ---
Mood: UP AND DOWN, STRUGGLES WITH DEPRESSION Sleep: SLEPT 8 HOURS LAST NIGHT, SLEEPING WELL AT NIGHT Appetite: NORMAL APPETITE Suidical thoughts: NONE REPORTED Homicidal thoughts: NONE REPORTED Recent stressors: STRESS OF MENTAL ILLNESS Family support: Aggressive Behavior: NONE REPORTED Ability to Perform ADL'sc: YES Psychotic sympstoms: NONE REPORTED Manic Symptoms: NONE REPORTED Living situation: LIVES WITH HIS Illicit Drug usec: OCCASIONAL MARIJUANA USE Alcoholo use: NONE REPORTED Tobacco use: NONE REPORTED Anxity Symptoms: MODERATE ANXIETY LEVEL Anger/Irritablility: LIMITED ANGER AND IRRITABILITY Muscle Strength & Tone: WNL Gait & Station: WNL Appearance: Well groomed/hygience, Casual attire, Normal weight, Appears age stated Attitude & Behaviour: Cooperative/Pleasant, Good eye contact Mood & Affect: Euthymic/appr/congruent, Iabile, Depressed Orientation: Fully oriented per interv Attention/Concentration: Good attention, Good concentration Speech: Reg rate/vol/rhyth/prosod Judgement/Insight: Fair judgement, Fair insight Thought Process: Linear/goal directed Language: Cuban Thought content/Abnormal/Psych: None/normal Fund of Knowledge: WNL Associations: WNL/Normal Associations Constitutional: None Neurological: None Psychiatric: Depressed, Anxious, Psychosis [place] I: BIPOLAR DISORDER WITH PSYCHOTIC FEATURES; CHAU [place] II: DEFERRED [place] III: REFER TO PMH/MEDICAL CHART [place] IV: STRESS OF MENTAL ILLNESS [place] V: GAF=35 Assessment/Plan Assessment/Plan Assessment/Plan Vital Signs Date Time Temp Pulse Resp B/P (MAP) Pulse Ox O2 Delivery O2 Flow Rate FiO2 05/21/18 08:53 111/59 05/21/18 08:53 61 05/21/18 07:30 97.9 20 96 Room Air 97.9 Allergies Coded Allergies No Known Allergies (Ndajrbpkai92/28/18) I & O 05/18/18 11:16 Thru 05/20/18 17:23 Intake Total 3796 ml Balance 3796 ml THE PATIENT WAS SEEN BY DR. BONNER VIA TELEMEDICINE EQUIPMENT ALONG WITH THE TREATMENT TEAM. THE PATIENT SLEPT 8 HOURS LAST NIGHT. THE PATIENT HAS A NORMAL APPETITE. THE PATIENT REPORTS HIS MOOD IS "ALRIGHT." THE PATIENT FEELS LIKE HIS MOOD HAS BEEN IMPROVING. THE PATIENT REPORTS A MODERATE ANXIETY LEVEL. THE PATIENT IS ANXIOUS ABOUT GOING HOME. THE PATIENT HAS BEEN PARTICIPATING IN GROUPS. THE PATIENT DENIES PARANOIA. THE PATIENT DENIES AUDITORY HALLUCINATIONS. THE PATIENT DENIES VISUAL HALLUCINATIONS. THE PATIENT DENIES MANIC OR HYPOMANIC SYMPTOMS. THE PATIENT IS A VOLUNTARY ADMISSION. ASSESSMENT: BIPOLAR DISORDER WITH PSYCHOTIC FEATURES, GENERALIZED ANXIETY DISORDER PLAN: 1) CONTINUE BEHAVIORAL HE[facility] MANAGEMENT AT THE [facility]. 2) DECREASE CLONAZEPAM TO 0.5MG PO BID. CONTINUE OTHER MEDICATIONS AT CURRENT DOSES. THE PATIENT WAS AGREEABLE WITH THE PLAN. SUPPORTIVE THERAPY GIVEN. THE PATIENT DENIES SI OR HI. SAFETY PLANS WERE DISCUSSED. Problems: (1) Bipolar disorder with psychotic features Status: Acute ICD Code: F31.9 - Bipolar disorder, unspecified SNOMED: [id number] Patient History: Asthma G8 BROTHER Cerebrovascular disorder 33 FATHER (50 years old) Chronic obstructive pulmonary disease G8 BROTHER Diabetes mellitus 32 MOTHER No known health problems 32 MOTHER 33 FATHER G8 BROTHER G8 SISTER G8 SISTER G8 SISTER Unknown 32 MOTHER (dies from lewgarets disease in 60's) 33 FATHER ( from heart attack in 50's) CASA BONNER IV, MD May 21, 2018 11:15
--- NOTE | 2018-05-21 17:41 | NUR ---
PIRP P: ALTERED THOUGHT PROCESS I: Q15 MIN MONITORING, ASSESS FOR HALLUCINATIONS AND DELUSIONS, MONITOR FOR CHANGES IN USUAL BEHAVIOR, PROVIDE 1:1 TO ENCOURAGE EXPRESSION OF FEELINGS, PROVIDE TASK-ORIENTED ACTIVITIES, PROVIDE SAFE AND SUPPORTIVE ENVIRONMENT, GIVE MEDICATIONS ORDERED R: PT HAS PLEASANT AFFECT, WITHDRAWS TO ROOM THROUGHOUT SHIFT AND RESTS IN BED WITH EYES CLOSED FREQUENTLY. DENIES DEPRESSION, ANXIETY, SI/HI, HALLUCINATIONS. NO DELUSIONS NOTED. INITIATES INTERACTION WITH STAFF AND PEERS, PARTICIPATES IN GROUP ACTIVITIES WITH PROMPTING, TAKES MEDICATIONS ORDERED. P: PLANS FOR PT TO DISCHARGE BEFORE END OF WEEK BACK HOME WITH .
[2018-05-21 19:36] VITALS: BP 132/83
[2018-05-21] MEDS ORDERED: LIPITOR ONE (20:11)
[2018-05-21] MEDS: LIPITOR PO SCH (20:14)
[2018-05-21] MEDS: ZYPREXA ZYDIS SL SCH (20:15)
[2018-05-22] MEDS: SYNTHROID PO SCH (05:44)
--- NOTE | 2018-05-22 05:54 | NUR ---
-PIRP P: Altered thought process I: Q 15 minute monitoring, assess for hallucinations, monitor for changes in usual behavior, provide task oriented activities, provide 1:1 to encourage expression of feelings, give medications as ordered, provide safe and supportive environment. R: The patient remains seclusive to self in room. He is pleasant on approach and interacts appropriately. The patient denies depression, suicidal or homicidal ideation, and hallucinations. He reports that his medication changes have been effective. Tonight, he reports that he does not feel tired, but remains seclusive to self in room because of another patient. He states "I can't get a word in. He just tells the same story over and over". The patient was compliant with evening medications. P: Continue with treatment plan. Will continue to monitor and maintain safety.
[2018-05-22 09:53] VITALS: BP_SYST 148; BP_SYST 149; BP_DIAS 85; BP_DIAS 96
[2018-05-22] MEDS: KLONOPIN PO SCH (10:24)
[2018-05-22] MEDS: ASPIRIN EC PO SCH (10:24)
[2018-05-22] MEDS: FLEXERIL PO SCH ×2 (10:24→20:15)
[2018-05-22] MEDS: TRICOR PO SCH (10:24)
[2018-05-22] MEDS: NORVASC PO SCH ×2 (10:24→20:13)
[2018-05-22] MEDS: HYDROCHLOROTHIAZIDE PO SCH (10:24)
[2018-05-22] MEDS: NEURONTIN PO SCH ×2 (10:24→20:13)
[2018-05-22] MEDS: CYMBALTA PO SCH ×2 (10:24→20:13)
[2018-05-22] MEDS: FLOMAX PO SCH (10:25)
--- NOTE | 2018-05-22 11:07 | NUR ---
TELEMED PT SPOKE WITH DR BONNER. STATED THAT HIS ENERGY HAS IMPROVED, AND THAT HE WOULD LIKE TO BE ABLE TO BE TAKEN OFF OF KLONOPIN COMPLETELY. NEW MED ORDERS RECEIVED REFER TO EMAR. PLAN TO DISCHARGE ON 05/23/18 BACK HOME.
--- NOTE | 2018-05-22 11:13 | PRM.PN ---
Mood: "ALRIGHT", DENIES FEELING DEPRESSED Sleep: SLEEPING WELL AT NIGHT Appetite: NORMAL APPETITE Suidical thoughts: NONE REPORTED Homicidal thoughts: NONE REPORTED Recent stressors: STRESS OF MENTAL ILLNESS, FAMILY STRESS Family support: IS SUPPORTIVE, LIVES WITH HIS Aggressive Behavior: NONE REPORTED Ability to Perform ADL'sc: YES Psychotic sympstoms: DENIES ALL PSYCHOTIC SYMPTOMS Manic Symptoms: NONE REPORTED Living situation: LIVES WITH HIS Illicit Drug usec: USES MARIJUANA OCCASIONALLY Alcoholo use: NONE REPORTED Tobacco use: NONE REPORTED Anxity Symptoms: STABLE ANXIETY LEVEL Anger/Irritablility: LIMITED ANGER AND IRRITABILITY Muscle Strength & Tone: WNL Gait & Station: WN Appearance: Well groomed/hygience, Casual attire, Normal weight, Appears age stated Attitude & Behaviour: Cooperative/Pleasant, Good eye contact Mood & Affect: Euthymic/appr/congruent Orientation: Fully oriented per interv Attention/Concentration: Good attention, Good concentration Speech: Reg rate/vol/rhyth/prosod Judgement/Insight: Fair judgement, Fair insight Thought Process: Linear/goal directed Language: Greenlandic Thought content/Abnormal/Psych: None/normal Fund of Knowledge: WNL Associations: WNL/Normal Associations Memory (recent and remote): Gross int/not form assess Constitutional: None Neurological: None Psychiatric: None [place] I: BIPOLAR DISORDER WITH PSYCHOSIS, GENERALIZED ANXIETY DISORDER [place] II: DEFERRED [place] III: REFER TO PMH/MEDICAL CHART [place] IV: STRESS OF MENTAL ILLNESS [place] V: GAF=35 Assessment/Plan Assessment/Plan Assessment/Plan Vital Signs Date Time Temp Pulse Resp B/P (MAP) Pulse Ox O2 Delivery O2 Flow Rate FiO2 05/22/18 10:24 149/96 05/22/18 10:24 94 05/22/18 09:53 98.7 20 94 98.7 05/21/18 07:30 Room Air Allergies Coded Allergies No Known Allergies (Jemeuaucoz76/28/18) I & O 05/18/18 11:16 Thru 05/22/18 10:43 Intake Total 5532 ml Balance 5532 ml Current Medications Medications (Trade) Dose Ordered Sig/Jordi Route Start Time Stop Time Status Last Admin Dose Admin Clonazepam (Klonopin) 0.5 mg BID PO 05/21/18 21:00 06/20/18 20:59 05/22/18 10:24 0.5 MG THE PATIENT WAS SEEN BY DR. BONNER VIA TELEMEDICINE EQUIPMENT ALONG WITH THE TREATMENT TEAM. THE PATIENT SLEPT 8.5 HOURS LAST NIGHT. THE PATIENT HAS A NORMAL APPETITE. THE PATIENT TOOK A SHOWER THIS MORNING. THE PATIENT REPORTS HIS MOOD IS "ALRIGHT." THE PATIENT DENIES FEELING DEPRESSED TODAY. THE PATIENT REPORTS A STABLE ANXIETY LEVEL. THE PATIENT HAS BEEN TAKING HIS MEDICATIONS. THE PATIENT HAS BEEN PARTICIPATING IN GROUPS. HE PREFERS TO STAY IN HIS ROOM. HE IS ANXIOUS ABOUT GOING HOME. THE PATIENT DENIES PARANOIA. THE PATIENT DENIES AUDITORY HALLUCINATIONS. THE PATIENT DENIES VISUAL HALLUCINATIONS. THE PATIENT DENIES MANIC OR HYPOMANIC SYMPTOMS. THE PATIENT IS A VOLUNTARY ADMISSION. ASSESSMENT: BIPOLAR DISORDER WITH PSYCHOTIC FEATURES, GENERALIZED ANXIETY DISORDER PLAN: 1) CONTINUE BEHAVIORAL HEALTH MANAGEMENT AT THE [facility]. 2) DISCONTINUE CLONAZEPAM. CONTINUE OTHER MEDICATIONS AT CURRENT DOSES. THE PATIENT WAS AGREEABLE WITH THE PLAN. SUPPORTIVE THERAPY GIVEN. THE PATIENT DENIES SI OR HI. SAFETY PLANS WERE DISCUSSED. Problems: (1) Bipolar disorder with psychotic features Status: Acute ICD Code: F31.9 - Bipolar disorder, unspecified SNOMED: [id number] Patient History: Asthma G8 BROTHER Cerebrovascular disorder 33 FATHER (50 years old) Chronic obstructive pulmonary disease G8 BROTHER Diabetes mellitus 32 MOTHER No known health problems 32 MOTHER 33 FATHER G8 BROTHER G8 SISTER G8 SISTER G8 SISTER Unknown 32 MOTHER (dies from lewgarets disease in 60's) 33 FATHER ( from heart attack in 50's) CASA BONNER IV, MD May 22, 2018 11:13
[2018-05-22] MEDS ORDERED: ATOR10TA PO (11:25)
[2018-05-22] MEDS ORDERED: OLAN5TAB5 SL (11:35)
[2018-05-22 19:23] VITALS: BP 156/88
[2018-05-22] MEDS: ZYPREXA ZYDIS SL SCH (20:13)
[2018-05-22] MEDS ORDERED: LIPITOR ONE (20:13)
[2018-05-22] MEDS: LIPITOR PO SCH (20:15)
--- NOTE | 2018-05-23 04:42 | NUR ---
-PIRP P: Altered thought process I: Q 15 minute monitoring, assess for hallucinations, monitor for changes in usual behavior, provide task oriented activities, provide 1:1 to encourage expression of feelings, give medications as ordered, provide safe and supportive environment. R: The patient presents with a pleasant affect. The patient remained in dayroom prior to going to bed and interacted appropriately with staff and peers. He denies depression, suicidal or homicdal ideation, and hallucinations. The patient reports "I feel good" and states that he is ready for discharge home in AM. P: Continue with treatment plan. Will continue to monitor and maintain safety.
[2018-05-23] MEDS: SYNTHROID PO SCH (05:58)
[2018-05-23 07:50] VITALS: BP 138/104
[2018-05-23] MEDS: ASPIRIN EC PO SCH (08:10)
[2018-05-23] MEDS: CYMBALTA PO SCH (08:11)
[2018-05-23] MEDS: HYDROCHLOROTHIAZIDE PO SCH (08:13)
[2018-05-23] MEDS: NORVASC PO SCH (08:14)
[2018-05-23] MEDS: NEURONTIN PO SCH (08:14)
[2018-05-23] MEDS: TRICOR PO SCH (08:14)
[2018-05-23] MEDS: FLOMAX PO SCH (08:14)
[2018-05-23] MEDS: FLEXERIL PO SCH (08:14)
--- NOTE | 2018-05-23 08:38 | PRM.PN ---
Mood: "GOOD", DENIES FEELING DEPRESSED Sleep: SLEEPING WELL AT NIGHT Appetite: NORMAL APPETITE Suidical thoughts: NONE REPORTED Homicidal thoughts: NONE REPORTED Recent stressors: STRESS OF MENTAL ILLNESS Family support: IS SUPPORTIVE Aggressive Behavior: NONE REPORTED Ability to Perform ADL'sc: YES Psychotic sympstoms: NONE REPORTED Manic Symptoms: NONE REPORTED Living situation: LIVES AT HOME IN [place] WITH HIS Illicit Drug usec: HX OF CANNABIS ABUSE, ENCOURAGED TO NOT USE MARIJUANA Alcoholo use: NONE REPORTED Tobacco use: NONE REPORTED Anxity Symptoms: STABLE ANXIETY LEVEL OFF CLONAZEPAM Anger/Irritablility: LIMITED ANGER AND IRRITABILITY Muscle Strength & Tone: WNL Gait & Station: WN Appearance: Well groomed/hygience, Casual attire, Overweight Attitude & Behaviour: Cooperative/Pleasant, Good eye contact Mood & Affect: Euthymic/appr/congruent Orientation: Fully oriented per interv Attention/Concentration: Good attention, Good concentration Speech: Reg rate/vol/rhyth/prosod Judgement/Insight: Fair judgement, Fair insight Thought Process: Linear/goal directed Language: Kosovan Thought content/Abnormal/Psych: None/normal Fund of Knowledge: WNL Associations: WNL/Normal Associations Memory (recent and remote): Gross int/not form assess Constitutional: None Neurological: None Psychiatric: None [place] I: BIPOLAR DISORDER WITH PSYCHOTIC FEATURES, CHAU [place] II: DEFERRED [place] III: REFER TO PMH/MEDICAL CHART [place] IV: STRESS OF MENTAL ILLNESS [place] V: GAF=45 Assessment/Plan Assessment/Plan Assessment/Plan Vital Signs Date Time Temp Pulse Resp B/P (MAP) Pulse Ox O2 Delivery O2 Flow Rate FiO2 05/23/18 08:14 93 138/104 05/22/18 19:23 98.3 20 92 Room Air 98.3 Allergies Coded Allergies No Known Allergies (Ebrhtlpzle10/28/18) I & O 05/18/18 11:16 Thru 05/23/18 05:22 Intake Total 6487 ml Balance 6487 ml THE PATIENT WAS SEEN BY DR. BONNER VIA TELEMEDICINE EQUIPMENT ALONG WITH THE TREATMENT TEAM. THE PATIENT SLEPT 7.75 HOURS LAST NIGHT. THE PATIENT HAS A NORMAL APPETITE. THE PATIENT HAS GOOD PERSONAL HYGIENE. THE PATIENT REPORTS HIS MOOD IS "GOOD." THE PATIENT DENIES FEELING DEPRESSED TODAY. THE PATIENT REPORTS A STABLE ANXIETY LEVEL. THE PATIENT HAS BEEN TAKING HIS MEDICATIONS. THE PATIENT HAS BEEN PARTICIPATING IN GROUPS. HE FEELS LIKE HE IS READY TO GO HOME. THE PATIENT DENIES PARANOIA. THE PATIENT DENIES AUDITORY HALLUCINATIONS. THE PATIENT DENIES VISUAL HALLUCINATIONS. THE PATIENT DENIES MANIC OR HYPOMANIC SYMPTOMS. THE PATIENT IS A VOLUNTARY ADMISSION. THE PATIENT IS DISCHARGING TODAY. HIS IW[facility] IS GOING TO PICK HIM UP. HE WOULD LIKE TO FOLLOW-UP WITH [facility]. ASSESSMENT: BIPOLAR DISORDER WITH PSYCHOTIC FEATURES, GENERALIZED ANXIETY DISORDER PLAN: 1) DISCHARGE TODAY. 2) CONTINUE MEDICATIONS AT CURRENT DOSES. THE PATIENT WAS AGREEABLE WITH THE PLAN. SUPPORTIVE THERAPY GIVEN. THE PATIENT DENIES SI OR HI. SAFETY PLANS WERE DISCUSSED. 16 MINUTES IN SUPPORTIVE THERAPY AND INSIGHT ORIENTED THERAPY. Problems: (1) Bipolar disorder with psychotic features Status: Resolved ICD Code: F31.9 - Bipolar disorder, unspecified SNOMED: [id number] Patient History: Asthma G8 BROTHER Cerebrovascular disorder 33 FATHER (52 years old) Chronic obstructive pulmonary disease G8 BROTHER Diabetes mellitus 32 MOTHER No known health problems 32 MOTHER 33 FATHER G8 BROTHER G8 SISTER G8 SISTER G8 SISTER Unknown 32 MOTHER (dies from lewgarets disease in 60's) 33 FATHER ( from heart attack in 50's) CASA BONNER IV, MD May 23, 2018 08:38
--- NOTE | 2018-05-23 08:40 | NUR ---
TELEMED PT SPOKE WITH DR BONNER. PT STATES HIS DEPRESSION 0/10 AND ANXIETY 0/10, AND THAT HE IS FEELING MUCH BETTER. ORDERS RECEIVED TO DISCHARGE PT TODAY, AND FOR PT TO FOLLOW UP WITH PSYCH DOCTOR. PT STATED THAT HE DID NOT LIKE DR HERRON AND DID NOT WANT TO FOLLOW UP WITH HIM. INFORMATION ON DR GARY BRIGGS, AND DR LORENZA BATES GIVEN.
[2018-05-23 09:30] VITALS: BP 114/67
--- NOTE | 2018-05-23 15:20 | DSH ---
DATE OF DISCHARGE: 05/23/2018 HOSPITAL COURSE: The patient is a 58-year-old male who is a voluntary admission to the Behavioral Health Unit at the [facility]. The patient came in with mood swings and psychotic symptoms. He felt like he was overmedicated and had a very low energy level. He was feeling very hopeless and helpless. He had a severely depressed mood. He showed improvement in his mood. His medications were trimmed and adjusted. He was discharged on Cymbalta 60 mg twice a day, gabapentin 200 mg twice a day, Zyprexa Zydis 5 mg p.o. at bedtime. He was tapered off his clonazepam. He was taken off his Trileptal. He was taken off his Wellbutrin-XL. The patient felt much better. He had hope for the future. He was not having suicidal or homicidal thoughts of discharge. He was not having any manic symptoms. He was not having any psychotic symptoms. He had a stable anxiety level. His is very supportive. He will be going back ____. He plans to follow up with outpatient psychiatry at [facility] or with Dr. Ramos. He has been seeing Dr. Ramos in the past. DISCHARGE DIAGNOSES: Bipolar disorder with psychotic features; generalized anxiety disorder. DISCHARGE PLAN: 1. The patient is being discharged in stable condition from the [facility]. 2. The patient will follow up with outpatient psychiatry in [place]. The patient should do outpatient counseling as well. 3. The patient was encouraged to not use marijuana. 4. The patient will continue the above psychotropic medications at current doses. Brooks Her IV MD DR: /char JOB# [id number]
--- NOTE | 2018-05-23 15:42 | NUR ---
DISCHARGE DISCHARGE INSTRUCTIONS GIVEN, SIGNED BY PT AND VERBALIZES UNDERSTANDING. ESCORTED PT AND PT'S TO PRIVATE VEHICLE. NO S/S OF DISTRESS NOTED.
--- NOTE | 2018-05-23 15:44 | NUR ---
PRESCRIPTIONS CALLED INTO [facility] ON [address].
[2018-05-23 15:45] VITALS: BP 114/67
== END 2018-05-23 15:49 | disposition home or self-care (01) | DRG 885 ==
LOC: ER 10:57 → EEVIPCON 12:38 → GP 12:38
PROVIDERS: ADMIT Psychiatry & Neurology Psychiatry; ATTEND Psychiatry & Neurology Psychiatry
DX: F31.9 Bipolar disorder, unspecified (principal); F20.9 Schizophrenia, unspecified; F41.1 Generalized anxiety disorder; E03.9 Hypothyroidism, unspecified; E78.00 Pure hypercholesterolemia, unspecified; E78.5 Hyperlipidemia, unspecified; G47.00 Insomnia, unspecified; F12.10 Cannabis abuse, uncomplicated; I10 Essential (primary) hypertension; N40.0 Benign prostatic hyperplasia without lower urinary tract symptoms; Z79.899 Other long term (current) drug therapy; Z87.891 Personal history of nicotine dependence; Z91.5 Personal history of self-harm; Z83.3 Family history of diabetes mellitus; Z82.5 Family history of asthma and other chronic lower respiratory diseases; Z82.3 Family history of stroke
CPT/HCPCS: 36415; 71045; 80053; 80061; 80307; 81002; 82550; 82607; 83036; 83880; 84443; 84484; 85025; 85610; 85730; 93005; 97150; 97165; 99285; G0378; G8987; G8988; J8499